=== PATIENT | female | born 1990 | race Caucasian/White ===

== ENCOUNTER 2017-01-15 10:00 | Observation (INO) | payer MEDICAID ==
[2017-01-15] MEDS ORDERED: PREN-96 PO (10:41)
== END 2017-01-15 13:02 | disposition home or self-care (01) | DRG 566 ==
LOC: INTOOBSV 10:00 → LDRP 10:00
PROVIDERS: ADMIT Specialist; ATTEND Specialist
DX: O48.0 Post-term pregnancy (principal); O62.9 Abnormality of forces of labor, unspecified
CPT/HCPCS: 59025; 76818; 81002; G0378

== ENCOUNTER 2017-01-17 11:20 | Observation (INO) | payer MEDICAID ==
[~2017-01-17 11:20] MED LIST: PREN-96 PO
[2017-01-17 15:03] LABS: Urine Bilirubin Negative (Negative); Urine Blood Negative /uL (Negative); Urine Color Yellow (Yellow); Urine Glucose 1+ mg/dL (Normal); Urine Ketone Negative (Negative); Urine Mucus FEW (None Seen); Urine Nitrite Negative (Negative); Urine RBC 2 /hpf (0 - 4); Urine Squamous Epithelial Cell MOD /hpf (<5); Urine Urobilinogen Normal (Negative); Urine pH 6.5 (5.0-8.0)
== END 2017-01-17 14:20 | disposition home or self-care (01) | DRG 566 ==
LOC: LDRP 11:20
PROVIDERS: ADMIT Obstetrics & Gynecology; ATTEND Obstetrics & Gynecology
DX: O48.0 Post-term pregnancy (principal); Z3A.40 40 weeks gestation of pregnancy
CPT/HCPCS: 59025; 76818; 81001; 81002; G0378

== ENCOUNTER 2017-01-19 09:37 | Observation (INO) | payer MEDICAID | END 2017-01-19 11:40 | disposition home or self-care (01) | DRG 566 | LOC: LDRP 09:37 | PROVIDERS: ADMIT Specialist; ATTEND Specialist | DX: O48.0 Post-term pregnancy (principal); Z3A.40 40 weeks gestation of pregnancy | CPT/HCPCS: 59025; 76818; 81002; G0378 ==

== ENCOUNTER 2017-01-20 13:50 | Inpatient (IN) | payer MEDICAID ==
[~2017-01-20] VITALS: Ht 170.2 cm; Wt 95.3 kg
[2017-01-20] MEDS ORDERED: LACT. RINGERS/OXYTOCIN 20UNITS 1,000 ML IV SCH ×2 (14:17→18:46)
[2017-01-20] MEDS ORDERED: WITCH HAZEL-GLYCERIN PAD TOP PRN (14:30)
[2017-01-20] MEDS ORDERED: PHISODERM TOP SOLN 240ML BTL TOP PRN (14:30)
[2017-01-20] MEDS ORDERED: METHYLERGONOVINE MALEATE 0.2 MG/ML AMP IM PRN (14:30)
[2017-01-20] MEDS ORDERED: CARBOPROST TROMETHAMINE 250 MCG/1ML VIAL IM PRN (14:30)
[2017-01-20] MEDS ORDERED: DERMOPLAST 60ML BOTTLE TOP PRN (14:30)
[2017-01-20] MEDS ORDERED: NALBUPHINE HCL 10 MG/1ml INJECTION IV PRN (14:30)
[2017-01-20] MEDS ORDERED: LIDOCAINE 2%HCL (LOCAL ANESTH.) INJ 20ML MDV IJ ONE (14:30)
[2017-01-20 15:14] LABS: Albumin 2.5 g/dL (3.4-5.0); BUN/Creatinine Ratio 18.8; Calcium 8.5 mg/dL (8.5-10.1); INR 0.88 (0.9-1.15); Partial Thromboplastin Time 27.9 sec (22.64-33.71); Potassium 3.8 mmol/L (3.5-5.1); Prothrombin Time 9.6 sec (9.37-12.3)
[2017-01-20] MEDS: LACTATED RINGER'S 1,000 ML IV SCH ×2 (15:15→22:17)
[2017-01-20 15:24] LABS: Bilirubin, Total 0.2 mg/dL (0.2-1.0); Total Protein 6.6 g/dL (6.4-8.2)
[2017-01-20 15:31] LABS: Basophils # (auto) 0 uL; Basophils % (auto) 0.2 % (0.0-2.0); Eosinophils # (auto) 0.1 uL; Eosinophils % (auto) 1.2 % (0.0-7.0); Hematocrit 35.6 % (36.0-46.0); Hemoglobin 11.8 g/dL (12.2-16.2); Lymphocytes # (auto) 1.4 uL; Lymphocytes % (auto) 14.9 % (10.0-50.0); Mean Corpuscular Hemoglobin 30.4 pg (28.0-32.0); Mean Corpuscular Hgb Conc. 33.3 g/dL (32.0-36.0); Mean Corpuscular Volume 91.5 fL (80.0-100.0); Mean Platelet Volume 8.1 fL (6.9-10.8); Monocytes # (auto) 0.6 uL; Monocytes % (auto) 6.7 % (0.0-12.0); Neutrophils # (auto) 7.2 uL; Platelet Count (auto) 306 10^3/uL (140-450); Red Cell Distribution Width 14.7 % (11.8-14.3); White Blood Cell 9.4 10^3/uL (4.4-10.8)
[2017-01-20 17:10] LABS: Urine Bilirubin Negative (Negative); Urine Blood 2+ /uL (Negative); Urine Color Colorless (Yellow); Urine Glucose Normal (Normal); Urine Ketone Negative (Negative); Urine Nitrite Negative (Negative); Urine RBC <1 /hpf (0 - 4); Urine Squamous Epithelial Cell FEW /hpf (<5); Urine Urobilinogen Normal (Negative); Urine pH 6.5 (5.0-8.0)
[2017-01-20] MEDS ORDERED: TERBUTALINE SULFATE 1 MG/ML 1ML VIAL SC ONE (19:00)
[2017-01-20] MEDS ORDERED: PROMETHAZINE HCL 25 MG/ML 1ML IV PRN (20:15)
[2017-01-20] MEDS ORDERED: OXYTOCIN 10UNIT/ML 1ML VIAL ONE (22:55)
[2017-01-21] MEDS ORDERED: IBUPROFEN 600 MG TAB PO ONE (02:52)
[2017-01-21 03:35] VITALS: BP 125/85
[2017-01-21 07:47] VITALS: BP 121/61
[2017-01-21] MEDS: DOCUSATE CALCIUM 240 MG CAP PO SCH (09:42)
[2017-01-21] MEDS: LACTATED RINGER'S 1,000 ML IV SCH ×2 (09:55→14:17)
[2017-01-21] MEDS: IBUPROFEN 600 MG TAB PO PRN ×3 (09:55→22:38)
[2017-01-21 12:10] VITALS: BP 120/65
[2017-01-21 16:10] VITALS: BP 120/59
[2017-01-21 19:00] VITALS: BP 115/60
[2017-01-21] MEDS: ACETAMINOPHEN 325 MG TAB PO PRN (19:31)
[2017-01-21 22:30] VITALS: BP 127/72
[2017-01-22 03:30] VITALS: BP 121/71
[2017-01-22] MEDS: ACETAMINOPHEN 325 MG TAB PO PRN (03:31)
[2017-01-22 07:35] VITALS: BP 115/65
[2017-01-22] MEDS: IBUPROFEN 600 MG TAB PO PRN (09:51)
[2017-01-22] MEDS: DOCUSATE CALCIUM 240 MG CAP PO SCH (09:51)
== END 2017-01-22 11:25 | disposition home or self-care (01) | DRG 560 ==
LOC: LDRP 13:50
PROVIDERS: ADMIT Obstetrics & Gynecology; ATTEND Obstetrics & Gynecology
PROC: 0KQM0ZZ Repair Perineum Muscle, Open Approach (ICD-10-PCS; principal; 2017-01-21)
PROC: 10E0XZZ Delivery of Products of Conception, External Approach (ICD-10-PCS; 2017-01-21)
PROC: 10907ZC Drainage of Amniotic Fluid, Therapeutic from Products of Conception, Via Natural or Artificial Opening (ICD-10-PCS; 2017-01-21)
DX: O48.0 Post-term pregnancy (principal); O69.81X0 Labor and delivery complicated by cord around neck, without compression, not applicable or unspecified; O70.1 Second degree perineal laceration during delivery; Z37.0 Single live birth; Z3A.40 40 weeks gestation of pregnancy
CPT/HCPCS: 36415; 59025; 59409; 80053; 80307; 81001; 85025; 85610; 85730; 86850; 86900; 86901; 87081; 96361; 96366; J2590

== ENCOUNTER 2018-07-01 10:05 | Observation (INO) | payer MEDICAID | END 2018-07-01 12:10 | disposition home or self-care (01) | DRG 566 | LOC: LDRP 10:05 | PROVIDERS: ADMIT Specialist; ATTEND Specialist | DX: O48.0 Post-term pregnancy (principal); Z3A.40 40 weeks gestation of pregnancy | CPT/HCPCS: 59025; 76818; 81002; G0378 ==

== ENCOUNTER 2018-07-02 16:25 | Inpatient (IN) | payer MEDICAID ==
[~2018-07-02] VITALS: Ht 33 cm; Wt 0.5 kg
[2018-07-02] MEDS ORDERED: LACTATED RINGER'S 1,000 ML IV SCH (16:39)
[2018-07-02] MEDS ORDERED: PHISODERM TOP SOLN 240ML BTL TOP ONE (16:45)
[2018-07-02] MEDS ORDERED: DERMOPLAST 60ML BOTTLE TOP PRN (16:45)
[2018-07-02] MEDS ORDERED: LACT. RINGERS/OXYTOCIN 20UNITS 1,000 ML IV ONE ×2 (16:45)
[2018-07-02] MEDS ORDERED: WITCH HAZEL-GLYCERIN PAD TOP PRN (16:45)
[2018-07-02 17:56] LABS: Basophils # (auto) 0 uL; Basophils % (auto) 0.3 % (0.0-2.0); Eosinophils # (auto) 0 uL; Eosinophils % (auto) 0.4 % (0.0-7.0); Hematocrit 39.6 % (36.0-46.0); Hemoglobin 12.7 g/dL (12.2-16.2); Lymphocytes # (auto) 1.5 uL; Lymphocytes % (auto) 11.3 % (10.0-50.0); Mean Corpuscular Hemoglobin 29.1 pg (28.0-32.0); Mean Corpuscular Volume 90.9 fL (80.0-100.0); Monocytes # (auto) 0.6 uL; Monocytes % (auto) 4.5 % (0.0-12.0); Neutrophils # (auto) 11.2 uL; Neutrophils % (auto) 83.5 % (37.0-80.0); Nucleated Red Blood Cells % 0.1 %; Platelet Count (auto) 321 10^3/uL (140-450); Red Blood Cells 4.35 10^6/uL (4.0-5.20); Red Cell Distribution Width 17.4 % (11.8-14.3); White Blood Cell 13.4 10^3/uL (4.4-10.8)
[2018-07-02 17:58] LABS: Urine Bacteria MOD /hpf (None Seen); Urine Blood 2+ /uL (Negative); Urine Mucus FEW (None Seen); Urine Specific Gravity 1.024 (1.001-1.035); Urine WBC 100 /hpf (0 - 5)
[2018-07-02 18:04] LABS: Albumin 2.6 g/dL (3.4-5.0); Calcium 8.7 mg/dL (8.5-10.1); Potassium 3.5 mmol/L (3.5-5.1); Uric Acid 3.2 mg/dL (2.6-6.0)
[2018-07-02 18:07] LABS: BUN/Creatinine Ratio 13.6; Bilirubin, Total 0.3 mg/dL (0.2-1.0); Total Protein 7.3 g/dL (6.4-8.2)
[2018-07-02 18:13] LABS: Alcohol, Urine < 3.0 mg/dL (0-5); Amphetamine Screen, Urine NEGATIVE (NEGATIVE); Barbiturate Scree,Urine NEGATIVE (NEGATIVE); Benzodiazephine Screen, Urine NEGATIVE (NEGATIVE); Cannabinoid Screen, Urine POSITIVE (NEGATIVE); Cocaine Screen, Urine NEGATIVE (NEGATIVE); Opiate Scree,Urine NEGATIVE (NEGATIVE); Phencyclidine Screen, Urine NEGATIVE (NEGATIVE)
[2018-07-02 18:27] LABS: INR 0.86 (0.9-1.15); Prothrombin Time 9.3 sec (9.27-12.13)
[2018-07-02 18:44] LABS: Partial Thromboplastin Time 26.3 sec (23.78-33.04)
[2018-07-02] MEDS: IBUPROFEN 600 MG TAB PO PRN (20:10)
--- NOTE | 2018-07-02 20:45 | NUR ---
Ambulation: Patient OOB with standby assistance by RN. Patient ambulated to bathroom with steady gait. Patient able to void without difficulty. [facility] teaching provided with returned demonstration by patient. Clean gown provided and bed linen changed. Patient ambulated back to bed with steady gait and no distress noted.
--- NOTE | 2018-07-02 21:30 | NUR ---
IV removal IV DC'd with sterile technique, catheter fully intact. Pressure dressing applied to site. Patient tolerated procedure well. Addendum: 07/02/18 at 2249 by ENDY SHUKLA RN Amended: Links added.
[2018-07-02 22:54] VITALS: BP 120/63
--- NOTE | 2018-07-03 00:19 | NUR ---
Lynsey Hidalgo cnm paged, notified of PPD screening results. Orders received and will be followed.
--- NOTE | 2018-07-03 00:50 | NUR ---
Patient informed of UDS positive for THC. Patient provided [facility] "Let's Talk Cannabis" handout. Patient educated regarding importance of stopping marijuana use and risks associated with while using marijuana. Patient verbalizes understanding of teaching and verbalizes that she does not habitually use marijuana and does not plan to use while .
[2018-07-03] MEDS ORDERED: ONDANSETRON ODT 4 MG TAB PO ONE (01:00)
[2018-07-03 03:14] VITALS: BP 120/73
[2018-07-03] MEDS: IBUPROFEN 600 MG TAB PO PRN ×2 (04:45→17:40)
[2018-07-03 07:30] VITALS: BP 126/86
[2018-07-03 11:30] VITALS: BP 127/68
--- NOTE | 2018-07-03 13:49 | NUR ---
REPORT RECEIVED FROM DESIREE CERVANTES
--- NOTE | 2018-07-03 13:49 | NUR ---
Report given to Gomez Valentine RN
--- NOTE | 2018-07-03 14:57 | NUR ---
TALKED TO [employer] JOANN AND SHE IS AWARE OF CONSULT AND STATES SHE WILL CALL BACK TODAY OR SEE PATIENT TOMORROW MORNING.
[2018-07-03 15:30] VITALS: BP 136/76
--- NOTE | 2018-07-03 16:50 | NUR ---
JOANN CALLED BACK AND STATES SHE WILL SEE PATIENT TOMORROW.
--- NOTE | 2018-07-03 17:50 | NUR ---
DR. OCHOA IN NURSING STATION AND MADE AWARE PATIENT HAS WHAT LOOKS LIKE A SMALL BLOOD BLISTER ON TIP OF LEFT INVERTED NIPPLE. NIPPLE SANDHYA GIVEN AND PATIENT REQUESTED FORMULA AND BOTTLE FEED. NO NEW ORDERS GIVEN.
--- NOTE | 2018-07-03 18:00 | NUR ---
GAVE PATIENT FORMULA PER REQUEST.PATIENT STATES SHE HAS HAD THIS WHITE SPOT (PUSS) LOOKING SORE FOR OVER A YEAR AND HAS NOT HAD IT LOOKED AT BY A DOCTOR. GAVE REPORT TO RAFA Bucio RN TO FOLLOW UP RELATED TO SHIFT CHANGE.
[2018-07-03 19:30] VITALS: BP 121/69
[2018-07-03 23:26] VITALS: BP 145/79
[2018-07-04 03:30] VITALS: BP 123/76
[2018-07-04 05:05] LABS: RPR Non Reactive (Non Reactive)
[2018-07-04 07:02] VITALS: BP 135/82
--- NOTE | 2018-07-04 07:02 | NUR ---
SORE NIPPLE CARE AND EDUCATION UPON PT MORNING ASSESSMENT, PT NOTIFIED THIS RN THAT "I HAVE A BLOOD BLISTER ON MY LEFT NIPPLE THAT I HAVE HAD SINCE WITH MY MOTHERBABY OVER A YEAR AGO." UPON ASSESSMENT OF LEFT BREAST, SKIN AROUND NIPPLE IS INTACT, NO BLEEDING OR PUSS NOTED AT OR AROUND NIPPLE. MOTHER EDUCATED TO USE THE LANOLIN CREAM AND COMFORT GELS ON BOTH NIPPLES WHEN INFANT IS NOT . MOTHER VERBALIZED UNDERSTANDING AND RETURNED DEMONSTRATION ON PROPER SORE NIPPLE MANAGEMENT AND CARE. ALL QUESTIONS ADN CONCERNS ADDRESSED AT THIS TIME. WILL CONTINUE TO MONITOR. Addendum: 07/04/18 at 0912 by Tara Duran RN "SINCE I HAVE HAD WITH MY OTHER BABY OVER A YEAR AGO."
--- NOTE | 2018-07-04 07:13 | NUR ---
Mary Jane SANDHU IN PATIENT ROOM FOR ASSESSMENT. NOTIFIED THAT PER PT "HAS A BLOOD BLISTER ON HER LEFT NIPPLE." PT STATES "I HAD THIS BLISTER WITH MY MOTHER BABY OVER A YEAR AGO." UPON ASSESSMENT OF LEFT BREAST, SKIN AROUND NIPPLE IS INTACT, NO BLEEDING OR PUSS NOTED AT OR AROUND NIPPLE. ORDERS RECEIVED FROM Gomez SANDHU CNM TO DISCHARGE PT HOME AND TO FOLLOW UP SCHEDULED WITH DR. KILOGRE. READ BACK AND VERIFIED ORDERS. WILL CARRY OUT. Addendum: 07/04/18 at 0913 by Tara Duran RN Gomez SANDHU CNM
[2018-07-04] MEDS ORDERED: TUBERCULIN PPD 5 UNIT/0.1 ML ID ONE (08:15)
--- NOTE | 2018-07-04 08:20 | NUR ---
SALVAGE ENGINEER VWhitney PATE SALVAGE ENGINEER AT NURSES STATION REGARDING SALVAGE ENGINEER CONSULT OF POSITIVE UDS ON MOTHER AND INFANT, HEADING INTO PT ROOM TO DISCUSSES MATTER.
--- NOTE | 2018-07-04 08:51 | NUR ---
[employer] B[employer] ASSEMBLER Zander PATE CALLED UNIT AND NOTIFIED THAT SHE TALKED WITH PATIENT AND SHE NOTIFIED CPS REGARDING POSITIVE RESULT AND TO CALL UNIT IF ANY FURTHER ACTION IS NEEDED. PER Zander PATE, PT IS CLEARED FROM [employer]SEMBLER FOR DISCHARGE. WILL CONTINUE TO MONITOR.
--- NOTE | 2018-07-04 10:20 | NUR ---
Discharge: Discharge instructions given as ordered. Pt encouraged to follow up with [facility] as instructed. All questions and concerns addressed. Patient verbalized understanding. Medication reconciliation completed and copy given to patient. All required/requested vaccines given and copies of vaccinations given to patient. Patient encouraged to prepare to depart unit.
[2018-07-04 10:33] VITALS: BP 133/78
--- NOTE | 2018-07-04 10:40 | NUR ---
Discharge: Patient taken to vehicle via ambulatory with steady gait with all personal belongings, accompanied by staff and family member. No distress noted at time of departure, no adverse changes in status since initial assessment.
== END 2018-07-04 10:40 | disposition home or self-care (01) | DRG 560 ==
LOC: LDRP 16:25 → OBSVTOIN 16:25 → LDRP 23:00
PROVIDERS: ADMIT Specialist; ATTEND Specialist
PROC: 10E0XZZ Delivery of Products of Conception, External Approach (ICD-10-PCS; principal; 2018-07-02)
DX: O62.3 Precipitate labor (principal); Z37.0 Single live birth; Z3A.40 40 weeks gestation of pregnancy
CPT/HCPCS: 36415; 59025; 59409; 80053; 80307; 81001; 81002; 84550; 85025; 85610; 85730; 86592; 86850; 86900; 86901; 96365; 96366; G0378; J2590; Q0162

== ENCOUNTER → 2022-06-21 | Outpatient (CLI) | payer MEDICAID | END | disposition home or self-care (01) | LOC: LAB 09:12 | PROVIDERS: ATTEND Obstetrics & Gynecology | DX: Z34.80 Encounter for supervision of other normal pregnancy, unspecified trimester (principal); Z3A.00 Weeks of gestation of pregnancy not specified ==

== ENCOUNTER → 2022-11-01 | Outpatient (CLI) | payer MEDICAID ==
[2022-11-01 09:39] LABS: Basophils # (auto) 0 10 ^3/uL (0-0.2); Basophils % (auto) 0.4 % (0.0-2.0); Eosinophils # (auto) 0.1 10 ^3/uL (0-0.8); Hematocrit 30.2 % (36.0-46.0); Lymphocytes # (auto) 1.6 10 ^3/uL (0.4-5.4); Lymphocytes % (auto) 26.2 % (10.0-50.0); Mean Corpuscular Hemoglobin 27.4 pg (28.0-32.0); Monocytes # (auto) 0.4 10 ^3/uL (0-1.3); Neutrophils % (auto) 65.4 % (37.0-80.0); Nucleated Red Blood Cells % 0.1 %; Red Blood Cells 3.64 10^6/uL (4.0-5.20); Red Cell Distribution Width 15.9 % (11.8-14.3); White Blood Cell 6.1 10^3/uL (4.4-10.8)
[2022-11-02 06:07] LABS: RPR Non Reactive (Non Reactive)
== END | disposition home or self-care (01) ==
LOC: LAB 09:11
PROVIDERS: ATTEND Obstetrics & Gynecology
DX: Z34.80 Encounter for supervision of other normal pregnancy, unspecified trimester (principal); Z3A.00 Weeks of gestation of pregnancy not specified
CPT/HCPCS: 36415; 84112; 85025; 86592

== ENCOUNTER 2022-11-23 15:40 | Observation (INO) | payer MEDICAID | END 2022-11-23 17:31 | disposition home or self-care (01) | LOC: UNDOADMOB 15:40 → LDRP 15:40 → UNDODISOB 17:31 | PROVIDERS: ADMIT Obstetrics & Gynecology; ATTEND Obstetrics & Gynecology | DX: O48.0 Post-term pregnancy (principal); Z3A.40 40 weeks gestation of pregnancy; Z87.891 Personal history of nicotine dependence | CPT/HCPCS: 59025; 76818; 81002; 94760; G0378 ==

== ENCOUNTER 2022-11-25 14:55 | Observation (INO) | payer MEDICAID | END 2022-11-25 16:30 | disposition home or self-care (01) | LOC: UNDOADMOB 14:55 → LDRP 14:55 | PROVIDERS: ADMIT Obstetrics & Gynecology; ATTEND Obstetrics & Gynecology | DX: O48.0 Post-term pregnancy (principal); Z3A.40 40 weeks gestation of pregnancy | CPT/HCPCS: 59025; 76818; 81002; G0378 ==

== ENCOUNTER 2022-11-26 13:48 | Inpatient (IN) | payer MEDICAID ==
[~2022-11-26] VITALS: Ht 170.2 cm; Wt 92.5 kg
[2022-11-26] MEDS ORDERED: LACTATED RINGER'S 1,000 ML IV SCH (15:15)
[2022-11-26] MEDS ORDERED: LIDOCAINE 2%HCL (LOCAL ANESTH.) INJ 20ML MDV IJ PRN (15:15)
[2022-11-26] MEDS ORDERED: PHISODERM TOP SOLN 240ML BTL TOP PRN (15:15)
[2022-11-26] MEDS ORDERED: WITCH HAZEL-GLYCERIN PAD TOP PRN (15:15)
[2022-11-26] MEDS ORDERED: DERMOPLAST 60ML BOTTLE TOP PRN (15:15)
[2022-11-26] MEDS ORDERED: LACT. RINGERS/OXYTOCIN 20UNITS 500 ML IV ONE ×2 (15:30→16:00)
[2022-11-26] MEDS ORDERED: METHYLERGONOVINE MALEATE 0.2 MG/ML AMP IM ONE (15:30)
[2022-11-26] MEDS ORDERED: OXYTOCIN 10UNIT/ML 1ML VIAL ONE (15:55)
[2022-11-26 16:12] LABS: Basophils # (auto) 0 10 ^3/uL (0-0.2); Basophils % (auto) 0.2 % (0.0-2.0); Eosinophils # (auto) 0.1 10 ^3/uL (0-0.8); Eosinophils % (auto) 0.5 % (0.0-7.0); Hemoglobin 10.9 g/dL (12.2-16.2); Monocytes # (auto) 0.8 10 ^3/uL (0-1.3); Neutrophils # (auto) 8.5 10 ^3/uL (1.6-8.6); Nucleated Red Blood Cells % 0.1 %
[2022-11-26 16:14] LABS: Hematocrit 33.7 % (36.0-46.0); Lymphocytes # (auto) 2.9 10 ^3/uL (0.4-5.4); Lymphocytes % (auto) 23.7 % (10.0-50.0); Mean Corpuscular Hemoglobin 26.3 pg (28.0-32.0); Mean Corpuscular Hgb Conc. 32.4 g/dL (32.0-36.0); Mean Corpuscular Volume 81.2 fL (80.0-100.0); Monocytes % (auto) 6.7 % (0.0-12.0); Neutrophils % (auto) 68.9 % (37.0-80.0); Red Blood Cells 4.16 10^6/uL (4.0-5.20); Red Cell Distribution Width 16.9 % (11.8-14.3); White Blood Cell 12.3 10^3/uL (4.4-10.8)
[2022-11-26 16:20] LABS: Albumin 2.9 g/dL (3.4-5.0); Calcium 9.3 mg/dL (8.5-10.1); Potassium 3.3 mmol/L (3.5-5.1)
[2022-11-26 16:25] LABS: BUN/Creatinine Ratio 12.5 (10.0-20.0); Bilirubin, Total 0.3 mg/dL (0.2-1.0); Total Protein 7.8 g/dL (6.4-8.2)
[2022-11-26 17:25] LABS: INR 0.92 (0.9-1.15); Partial Thromboplastin Time 26.5 SEC (24.5-34.5); Prothrombin Time 9.7 sec (9.3-11.8)
[2022-11-26] MEDS ORDERED: ONDANSETRON ODT 4 MG TAB PO PRN (17:45)
[2022-11-26] MEDS: IBUPROFEN 600 MG TAB PO PRN (18:45)
[2022-11-26 18:56] VITALS: BP 133/73; PULSE 74; RESP 18; TEMP 97.6
[2022-11-26 19:49] LABS: Urine Bacteria FEW /hpf (None Seen); Urine WBC 3 /hpf (0 - 5)
[2022-11-26 19:51] LABS: Urine Clarity Hazy (Clear); Urine Color Yellow (Yellow)
[2022-11-26 19:52] LABS: Urine Blood 3+ /uL (Negative); Urine Protein, UAD Trace (Negative); Urine Urobilinogen Normal (Negative)
[2022-11-26 20:03] LABS: Alcohol, Urine < 3.0 mg/dL (0-10); Amphetamine Screen, Urine NEGATIVE (NEGATIVE); Barbiturate Scree,Urine NEGATIVE (NEGATIVE); Benzodiazephine Screen, Urine NEGATIVE (NEGATIVE); Cannabinoid Screen, Urine POSITIVE (NEGATIVE); Cocaine Screen, Urine NEGATIVE (NEGATIVE)
[2022-11-26 20:10] LABS: Opiate Scree,Urine NEGATIVE (NEGATIVE); Phencyclidine Screen, Urine NEGATIVE (NEGATIVE)
[2022-11-26] MEDS: ACETAMINOPHEN 325 MG TAB PO PRN (20:52)
[2022-11-26] MEDS ORDERED: POTASSIUM CHL 20 Meq TABLET PO ONE (22:00)
[2022-11-26] MEDS ORDERED: DOCUSATE SOD 100 MG CAP PO SCH (22:00)
[2022-11-26 22:40] VITALS: BP 117/79; PULSE 77; RESP 19; TEMP 97.8
[2022-11-27 02:40] VITALS: BP 129/60; PULSE 71; RESP 18; TEMP 98
[2022-11-27] MEDS: IBUPROFEN 600 MG TAB PO PRN ×2 (03:28→09:31)
[2022-11-27 07:00] VITALS: BP 129/78; PULSE 69; RESP 17; TEMP 97.8
[2022-11-27] MEDS: ACETAMINOPHEN 325 MG TAB PO PRN (07:18)
[2022-11-27 11:00] VITALS: BP 130/77; PULSE 78; RESP 16; TEMP 98
[2022-11-27 15:00] VITALS: BP 134/76; PULSE 72; RESP 17; TEMP 98.3
[2022-11-29 04:06] LABS: RPR Non Reactive (Non Reactive)
[2022-11-29 19:06] LABS: Treponema pallidum Ab (FTA-Ab) Non Reactive (Non Reactive)
== END 2022-11-27 18:09 | disposition home or self-care (01) | DRG 560 ==
LOC: LDRP 13:48 → OBSVTOIN 15:11 → LDRP 16:50
PROVIDERS: ADMIT Obstetrics & Gynecology; ATTEND Obstetrics & Gynecology
PROC: 10E0XZZ Delivery of Products of Conception, External Approach (ICD-10-PCS; principal; 2022-11-26)
DX: O48.0 Post-term pregnancy (principal); Z37.0 Single live birth; Z3A.40 40 weeks gestation of pregnancy
CPT/HCPCS: 36415; 59025; 59409; 80053; 80307; 81001; 81002; 85025; 85610; 85730; 86592; 86850; 86900; 86901; 94760; 96360; 96372; G0378

== ENCOUNTER 2023-12-06 06:25 | Day surgery (SDC) | payer MEDICAID ==
[2023-12-04 12:11] LABS: Basophils # (auto) 0 10 ^3/uL (0-0.2); Basophils % (auto) 0.6 % (0.0-2.0); Eosinophils # (auto) 0 10 ^3/uL (0-0.8); Eosinophils % (auto) 0.6 % (0.0-7.0); Hematocrit 37.6 % (36.0-46.0); Hemoglobin 12.2 g/dL (12.2-16.2); Lymphocytes # (auto) 1.9 10 ^3/uL (0.4-5.4); Lymphocytes % (auto) 28.7 % (10.0-50.0); Mean Corpuscular Hemoglobin 28.8 pg (28.0-32.0); Mean Corpuscular Hgb Conc. 32.6 g/dL (32.0-36.0); Mean Corpuscular Volume 88.3 fL (80.0-100.0); Monocytes # (auto) 0.4 10 ^3/uL (0-1.3); Monocytes % (auto) 6.5 % (0.0-12.0); Neutrophils # (auto) 4.1 10 ^3/uL (1.6-8.6); Neutrophils % (auto) 63.6 % (37.0-80.0); Platelet Count (auto) 392 10^3/uL (140-450); Red Blood Cells 4.25 10^6/uL (4.0-5.20); White Blood Cell 6.5 10^3/uL (4.4-10.8)
[2023-12-04 12:25] LABS: Urine Blood Negative /uL (Negative); Urine Clarity Clear (Clear); Urine Color Colorless (Yellow); Urine Protein, UAD Negative (Negative); Urine Specific Gravity 1.007 (1.001-1.035); Urine Urobilinogen Normal (Negative); Urine pH 5.5 (5.0-9.0)
[2023-12-04 12:48] LABS: INR 1.04 (0.9-1.15)
[2023-12-04 13:01] LABS: Partial Thromboplastin Time 29.4 SEC (24.5-34.5)
[2023-12-04 13:06] LABS: Alanine Aminotransferase 10 U/L (7-40); Albumin 4.6 g/dL (3.2-4.8); Alkaline Phosphatase 54 U/L (46-116); Anion Gap 6 (5-15); Aspartate Aminotransferase 9 U/L (13-40); BUN/Creatinine Ratio 9.8 (10.0-20.0); Blood Urea Nitrogen 6 mg/dL (9-23); Calcium 9.4 mg/dL (8.7-10.4); Carbon Dioxide 26 mmol/L (20-30); Chloride 106 mmol/L (98-107); Glucose 93 mg/dL (74-106); Potassium 4.5 mmol/L (3.5-5.1); Sodium 138 mmol/L (136-145)
[2023-12-04 13:07] LABS: Bilirubin, Total 0.6 mg/dL (0.2-1.0); Total Protein 7.5 g/dL (5.7-8.2)
[~2023-12-06] VITALS: Ht 170.2 cm; Wt 67.1 kg
[2023-12-06] MEDS ORDERED: PHENYLEPHRINE HCL 10 MG/ML VL IV ONE (06:26)
[2023-12-06] MEDS ORDERED: BUPIVACAINE 0.5% MPF INJ 30ML SDV IJ ONE (07:19)
[2023-12-06] MEDS ORDERED: ceFAZolin 2 GM/D5W50ml 50 ML IV ONE (07:39)
[2023-12-06] MEDS ORDERED: DexAMETHasone SOD PHOS 10MG/1ML VIAL INJ ONE (07:48)
[2023-12-06] MEDS ORDERED: PROPOFOL 10 MG/ML 20 ML IV ONE (07:48)
[2023-12-06] MEDS ORDERED: MEPERIDINE HCL (50 MG/ML) 1 ML VIAL ONE (07:48)
[2023-12-06] MEDS ORDERED: fentaNYL CITRATE 100 MCG/2 ML VL ONE (07:48)
[2023-12-06] MEDS ORDERED: MIDAZOLAM HCL 2MG/2ML 2ml VIAL (1mg/ml) ONE (07:48)
[2023-12-06] MEDS: LIDOCAINE W/ EPINEPHRINE 1% 20ML VIAL ONE (09:05)
[2023-12-06] MEDS: BUPIVACAINE 0.25% INJ 50ML VIAL ONE (09:05)
[2023-12-06 09:15] VITALS: TEMP 98.4; O2SAT 98
[2023-12-06] MEDS ORDERED: ACE3T PO (09:17)
[2023-12-06 10:05] VITALS: BP 139/85; PULSE 63; RESP 18; O2SAT 98
== END 2023-12-06 10:15 | disposition home or self-care (01) ==
LOC: SUR 06:25
PROVIDERS: ATTEND Surgery
DX: K41.90 Unilateral femoral hernia, without obstruction or gangrene, not specified as recurrent (principal); I89.8 Other specified noninfective disorders of lymphatic vessels and lymph nodes; Z98.890 Other specified postprocedural states
CPT/HCPCS: 36415; 38531; 49550; 80053; 81003; 84702; 85025; 85610; 85730; 86850; 86900; 86901; C1781; J0690; J1100; J2175; J2250; J2371; J2704; J3010; J3490